=== PATIENT | male | born 1995 | race Caucasian/White ===

== ENCOUNTER 2022-01-23 13:21 | Emergency (ER) | payer MEDICAID ==
[~2022-01-23] VITALS: Ht 165.1 cm; Wt 81.6 kg
--- NOTE | 2022-01-23 13:21 | NUR ---
BIB [facility] FOR POSSIBLE OVERDOSE OF UNKNOWN SUBSTAIN, PT FOUND IN HIS CAR, RESPONSIVE TO PAIN, BLOOD SUGAR 88. PLACED ON BED, DROWSY RESPONDING TO VERBAL STIMULI, BREATHING EVEN AND UNLABORED SATURATING AT 96%RA. SEEN BY DR OROZCO
[2022-01-23] MEDS ORDERED: PRAZ1CAP5 PO (13:31)
[2022-01-23] MEDS ORDERED: CHOL100043 PO (13:31)
[2022-01-23] MEDS ORDERED: OLAN20TA3 PO (13:31)
[2022-01-23] MEDS ORDERED: MULT1CAP PO (13:31)
[2022-01-23] MEDS ORDERED: SERT25TA PO (13:31)
[2022-01-23] MEDS ORDERED: RISP0.2515 PO (13:31)
--- NOTE | 2022-01-23 13:49 | NUR ---
WINDING DEPARTMENT SUPERVISOR AT BED SIDE
[2022-01-23 14:13] LABS: BASOPHILS # (AUTO) 0.1 K/uL (0.0-0.2); BASOPHILS % (AUTO) 1.4 % (0.0-2.0); EOSINOPHILS % (AUTO) 5.5 % (0.0-6.0); HEMATOCRIT 39 % (39-51); HEMOGLOBIN 13.1 g/dL (13.5-17.5); LYMPHOCYTES # (AUTO) 2.4 K/uL (0.8-4.8); LYMPHOCYTES % (AUTO) 36.9 % (20.0-44.0); MEAN CORPUSCULAR HGB CONC 33 g/dl (31.0-36.0); MEAN CORPUSCULAR VOLUME 85 fL (80-96); MONOCYTES # (AUTO) 0.4 K/uL (0.1-1.30); MONOCYTES % (AUTO) 6.3 % (2.0-12.0); NEUTROPHILS # (AUTO) 3.2 K/uL (1.8-8.9); NEUTROPHILS % (AUTO) 49.9 % (43.0-81.0); PLATELET COUNT (AUTO) 231 K/uL (150-450); WHITE BLOOD COUNT (AUTO) 6.5 K/uL (4.3-11.0)
[2022-01-23 14:39] LABS: CARBON DIOXIDE 27 mmol/L (21-32); CHLORIDE 106 mmol/L (98-107); CREATININE 0.9 mg/dL (0.6-1.3); GLUCOSE 83 mg/dL (74-106); POTASSIUM 3.9 mmol/L (3.5-5.1); SODIUM SERUM 141 mmol/L (136-145); UREA NITROGEN, BLOOD 10 mg/dL (7-18)
--- NOTE | 2022-01-23 15:12 | NUR ---
URINE SAMPLE SENT TO LAB
[2022-01-23 15:17] LABS: ALANINE AMINOTRANSFERASE 31 U/L (12-78); ALBUMIN 3.7 g/dL (3.4-5.0); ASPARTATE AMINOTRANSFERASE 14 U/L (15-37); BILIRUBIN,DIRECT 0.1 mg/dL (0.0-0.2)
[2022-01-23 15:31] LABS: ALKALINE PHOSPHATASE 81 U/L (46-116); BILIRUBIN,TOTAL 0.2 mg/dL (0.2-1.0); TOTAL PROTEIN, SERUM 6.6 g/dL (6.4-8.2)
[2022-01-23 15:50] LABS: BILIRUBIN,URINE NEGATIVE (NEGATIVE); COLOR,URINE YELLOW (YELLOW); LEUKOCYTE ESTERASE ,URINE NEGATIVE (NEGATIVE); NITRITE, URINE NEGATIVE (NEGATIVE); PROTEIN,URINE NEGATIVE (NEGATIVE); UGLUCOSE NEGATIVE (NEGATIVE)
[2022-01-23 15:59] LABS: BACTERIA,URINE None seen /HPF (None Seen); MUCUS,URINE Few /LPF (None Seen); RBC,URINE 0-2 /HPF (0-2); SQUAMOUS EPITHELIAL CELL,UR 0-2 /HPF (None Seen); WBC,URINE 0-2 /HPF (0-3)
[2022-01-23 16:28] LABS: ACETAMINOPHEN < 0 ug/ml (10-30); ALCOHOL, BLOOD < 3 mg/dL (0-0)
[2022-01-23] MEDS ORDERED: NICOTINE PATCH (14MG) 14 MG PATCH.TD24 TD SCH (16:30)
--- NOTE | 2022-01-23 22:34 | NUR ---
CALLED KAYLEN VENTURA FOR PSYCH EVAL
--- NOTE | 2022-01-23 23:43 | NUR ---
CRITICAL CARE UNIT MANAGER AT BEDSIDE
[2022-01-24] MEDS ORDERED: LORAZEPAM 0.5 MG TABLET PO ONE
[2022-01-24] MEDS ORDERED: OLANZAPINE 5 MG TABLET PO ONE
[2022-01-24] MEDS ORDERED: LORAZEPAM 0.5 MG TABLET ONE (00:14)
[2022-01-24] MEDS ORDERED: OLANZAPINE 5 MG TABLET ONE (00:14)
--- NOTE | 2022-01-24 00:27 | NUR ---
PT GIVEN FOOD, WALKED TO RESTROOM, NEEDS MET
--- NOTE | 2022-01-24 06:45 | NUR ---
Patient discharged to home in stable condition. Written and verbal after care instructions given. Patient verbalizes understanding of instruction. Ambulatory with stable gait.
[2022-01-24 06:46] VITALS: BP 113/74
== END 2022-01-24 06:46 | disposition home or self-care (01) ==
LOC: ER 13:22
DX: R40.0 Somnolence (principal); F19.10 Other psychoactive substance abuse, uncomplicated; F20.9 Schizophrenia, unspecified; F84.0 Autistic disorder; F31.9 Bipolar disorder, unspecified; F17.200 Nicotine dependence, unspecified, uncomplicated; Z59.00 Homelessness unspecified; Z79.899 Other long term (current) drug therapy
CPT/HCPCS: 36415; 70450-TC; 72125-TC; 80048-TC; 80076-TC; 81001; 85025-TC; G0480